=== PATIENT | male | born 1955 | race Caucasian/White ===

== ENCOUNTER 2020-07-04 08:09 | Observation (INO) | payer MEDICARE, SELFPAY ==
[2020-07-04] VITALS (25 sets, daily range): BP systolic 121–161; BP diastolic 78–108; PULSE 102–122; RESP 17–32; TEMP 36.3–36.9; O2SAT 88–100; BMI 13.6
--- NOTE | ~2020-07-04 | XR_ITS ---
EXAMINATION: XR chest 1V portable DATE: 07/04/2020 09:12 INDICATION: Congestive heart failure presenting with dyspnea. TECHNIQUE: frontal view of the chest was obtained. COMPARISON: Chest radiograph dated 02/04/2017 FINDINGS: The lungs are clear with no focal airspace opacities, pulmonary edema, pleural effusion or pneumothor ax. The cardiomediastinal silhouette is within normal limits for AP technique. Plate-screw fixation a long the right clavicle. Anterior plate and screws for anterior cervical spinal fusion at the cervico thoracic junction. Bilateral vertical joshua and lateral mass screws for posterior spinal fusion beginni ng at the cervicothoracic junction extending cephalad to at least the mid cervical spine. IMPRESSION: 1. No acute cardiopulmonary disease. Reviewed, dictated and finalized at location A. UP OPERATOR
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
[2020-07-04 08:31] LABS: Basophils Percent Auto 0.3 % (0.2-1.2); Eosinophils Absolute Auto 0.1 K/mm3 (0-0.3); Eosinophils Percent Auto 0.6 % (0-4.4); Hematocrit 47.3 % (42.0-52.0); Hemoglobin 15.1 g/dL (14.0-18.0); Immature Granulocyte Absolute 0.05 K/mm3 (0.00-0.031); Immature Granulocyte Percent A 0.4 % (0-0.5); Lymphocytes Absolute Auto 2.45 K/mm3 (0.9-3.2); Lymphocytes Percent Auto 20.6 % (18.3-44.2); Mean Corpuscular HGB Conc 31.9 g/dl (32-36); Mean Corpuscular Hemoglobin 32.6 pg (26-34); Mean Corpuscular Volume 102.2 fl (80-100); Mean Platelet Volume 10.7 fl (7.4-10.4); Monocytes Absolute Auto 0.7 K/mm3 (0.1-0.6); Neutrophils Absolute Auto 8.6 K/mm3 (1.3-6.7); Neutrophils Percent Auto 72.1 % (45.5-73.1); Platelet Count Result 266 k/mm3 (150-375); Red Blood Count 4.63 M/mm3 (4.6-6.20); Red Cell Distribution Width 13.1 % (11.5-14.5); White Blood Count 11.9 K/mm3 (4.5-10.0)
[2020-07-04 08:41] LABS: Partial Thromboplastin Time 30.1 SECONDS (22.3-36.8); Prothrombin Time 13.4 Seconds (11.1-14.7)
[2020-07-04] MEDS: FUROSEMIDE INJ 40 MG/4 ML VIAL 20 MG IV PUSH ×2 (08:47→18:45)
[2020-07-04] MEDS: methylPREDNISolone SOD SUCC 125 MG VIAL IV PUSH (08:49)
[2020-07-04 08:51] LABS: Alanine Aminotransferase 46 U/L (4-50); Albumin Level 4.1 g/dL (3.5-5.1); Alkaline Phosphatase 75 U/L (38-126); Aspartate Amino Transferase 55 U/L (17-59); Bilirubin,Total 0.5 mg/dL (0.2-1.3); Blood Urea Nitrogen 17 mg/dL (9-20); CRP 0.8 mg/dL (<1.0); Calcium 8.8 mg/dL (8.4-10.2); Carbon Dioxide > 40 mmol/L (22-30); Chloride 95 mmol/L (98-107); Estimated CRCL calculation 65 ml/min; Estimated Glomerular Filt Rate > 60; Glucose 242 mg/dL (75-110); Potassium 4.2 mmol/L (3.4-5.0); Sodium 140 mmol/L (137-145)
[2020-07-04] MEDS: MAGNESIUM SULF 2 GM/WATER 50ML 2 GM/50 ML BAG IVPB (08:52)
[2020-07-04] MEDS: IPRATROPIUM BR 0.02% INH SOLN 0.5 MG/2.5 ML VIAL 1 MG INHALATION (08:52)
[2020-07-04] MEDS: ALBUTEROL SULFATE NEB 2.5 MG/0.5 ML INH 10 MG INHALATION (08:52)
--- NOTE | 2020-07-04 08:58 | PC.NURSE ---
RT at bedside for hour long UDT per order. Pt given urinal and explained the medications lasix and steroids and their effects. Pt appears less short of breath at present.
[2020-07-04 09:07] LABS: NT Pro B Type Natriuretic Pept 3510 PG/ML (5-100); Troponin I 0.067 ng/mL (0.000-0.034)
[2020-07-04 10:21] LABS: Lactic Acid Reflex 1.7 mmol/L (0.7-2.1)
--- NOTE | 2020-07-04 10:30 | PC.NURSE ---
Pt states can take baby aspirin without any difficulty or stomach upset. States hasn't taken any in years . Pt using urinal frequently after lasix. Resp less labored than on arrival. o2 placed at 2L/NC per order Dr. Saunders.
[2020-07-04] MEDS: ASPIRIN 81 MG CHEWABLE TABLET 324 MG PO (10:48)
--- NOTE | 2020-07-04 10:48 | PC.NURSE ---
Pt swabbed for COVID. Note sp02 88-90% on Room air, up to 94-95%. Pt states is feeling much better at present.
[2020-07-04] MEDS: methylPREDNISolone SOD SUCC 125 MG VIAL 60 MG IV PUSH ×2 (12:21→18:45)
--- NOTE | 2020-07-04 12:23 | ADMGEN ---
This patient, Khris Wyatt, was admitted to IMU Room 214-01. Patient/family oriented to hospital policies and general routines including ID bracelet, bed and alarms, visiting hours, pain management, procedures, bathroom and other care routines, personal items, smoking policy, room service/diet, and visiting hours. Information on how to activate the Rapid Response Team has been discussed. Patient/Family are encouraged to report perceived risks to care and to ask questions if they do not understand what they are told or what they should do.
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
--- NOTE | 2020-07-04 12:33 | ECG_ITS ---
Measurements Intervals [place] Rate: 122 P: 15 VA: 146 QRS: 76 QRSD: 91 T: 240 QT: 309 QTc: 440 Interpretive Statements SINUS TACHYCARDIA NONSPECIFIC ST & T-WAVE ABNORMALITY- INF/LAT LEADS BASELINE ARTIFACT- V4-V5 ABNORMAL ECG Electronically Signed On 07-04-2020 16:32:13 PIG STICKER by Joe Nguyễn D.O.
[2020-07-04 13:27] LABS: D Dimer 0.52 ug/mL (<0.48)
[2020-07-04 13:42] LABS: Troponin I 0.078 ng/mL (0.000-0.034)
[2020-07-04 17:04] LABS: Troponin I 0.064 ng/mL (0.000-0.034)
[2020-07-04 17:56] LABS: SARS-CoV-2 RNA PCR Negative
--- NOTE | 2020-07-04 18:11 | PCRCNOTE ---
too close to next scheduled tx
[2020-07-04] MEDS: lisinopriL 5 MG TABLET PO (18:46)
[2020-07-04] MEDS: INSULIN ASPART (*BKC) 100 UNITS/ML SUB-Q (18:53)
[2020-07-04 19:02] LABS: Glucose Point of Care 376 (65-105)
[2020-07-04] MEDS: IPRATROPIUM BR 0.02% INH SOLN 0.5 MG/2.5 ML VIAL INHALATION (20:05)
[2020-07-04] MEDS: ALBUTEROL SULFATE NEB 2.5 MG/0.5 ML INH 5 MG INHALATION (20:05)
[2020-07-04] MEDS: ENOXAPARIN 40 MG/0.4 ML SYRINGE SUB-Q (20:09)
[2020-07-04 20:25] LABS: Glucose Point of Care 294 (65-105)
--- NOTE | 2020-07-04 22:01 | PC.NURSE ---
Addendum entered by Priyanka Carty RN 07/04/20 22:18: Amended to note that Katerina Wardkelly notified of pt's leaving ama at 2119 Original Note: Patient notified of risks of leaving AMA. Pt was genial and talkative prior, but when this RN went to check on patient after all his tele leads were off at 2107, he was agitated and stated he was leaving. PCT heard him talking on the telephone just prior. Pt would not wait for RN to get AMA form and just barely let RN remove his iv. IV was removed. Pt stated he had his belongings but would not answer further questions as to what changed, if he had a ride, or if there were anything I could do for him. He was not receptive to any means of convincing him to stay. system validation engineer Yadi called pt's phone at [id number]/04/2020 and patient stated that he was safely at home.
--- NOTE | 2020-07-04 22:06 | PC.NURSE ---
2200 called home phone multiple times, on final dial call was accepted. Man answered and this nurse asked to speak to Khris. Man identified himself as Khris and this nurse explained it was the charge nurse calling to make sure he had gotten home OK. Pt states he did.
--- NOTE | 2020-07-04 22:15 | PM.EVENT ---
Event Note Event Note Event Note: I was notified that the patient signed out AMA the nurse tells me that she was able to get the IV out and that he made it home safely.
--- NOTE | 2020-07-05 04:11 | PC.NURSE ---
Pt called at 0400 to see if he needed to come back for us to finish those tests. Advised him that if he felt short of breath again or felt like he needed to be treated, he should call 911 or go to the ER. Pt stated he felt bad for leaving after we'd gone to so much trouble with the tests. Stated he left, not because of the care he was receiving, but for another reason he did not say. Said we made him feel like a million bucks. Reiterated to patient that he should go to the ER or call 911 if his symptoms returned. Pt then called back a few minutes later to what he should do about a possible new diagnosis of diabetes. Advised pt to follow up with his primary care.
== END 2020-07-04 21:10 | disposition left against medical advice (07) ==
LOC: ANHED 10:06 → ANHIMU 10:34
PROVIDERS: Admitting Provider Internal Medicine; Emergency Provider Emergency Medicine; Visit Provider Internal Medicine
DX: J44.1 Chronic obstructive pulmonary disease with (acute) exacerbation (principal); R07.89 Other chest pain; R77.8 Other specified abnormalities of plasma proteins; I11.0 Hypertensive heart disease with heart failure; I50.9 Heart failure, unspecified; F41.8 Other specified anxiety disorders; Z87.891 Personal history of nicotine dependence; Z20.828 Contact with and (suspected) exposure to other viral communicable diseases
CPT/HCPCS: 36415; 71045; 80053; 83605; 83880; 84443; 84484; 85025; 85380; 85610; 85730; 86140; 87040; 87635; 93005; 94640; 96365; 96372; 96375; 96376; 99285; A9270; C9803; G0378; J1650; J1815; J1940; J2930; J3475; U0003